=== PATIENT | male | born 1940 | race Caucasian/White ===

== ENCOUNTER 2016-12-10 01:01 | Emergency (ER) | payer OTHER ==
[~2016-12-10] VITALS: Ht 180.3 cm; Wt 99.8 kg
[~2016-12-10 01:01] MED LIST: BAYER CHEWABLE81 MG PO; GLUCOPHAGE1000 MG PO; GLUCOPHAGE500 MG PO; HYDROCHLOROTH12.5 MG; HYDROCODON-ACE1 EAC2 PO; JANUVIA100 MG PO; K-DUR10 MEQ PO; LASIX 20 MG TAB20 MG PO; LISINOPRIL10 MG PO; LISINOPRIL5 MG; MULTIVITAMINS PO; POTASSIUM20; SIMVASTATIN20 MG PO; SIMVASTATIN5 MG; VITAMIN D-32000 UNIT PO
[2016-12-10 01:54] LABS: HEMATOCRIT 36.4 % (42.0-52.0); HEMOGLOBIN 12.4 gm/dL (14.0-18.0); MCH 30.7 pg (26.0-34.0); MCHC 34.2 g/dL (28.0-37.0); MCV 89.9 fL (80.0-100.0); RBC 4.05 mil/uL (4.50-6.00); RDW 13.4 % (10.5-14.5); WBC 8.9 thou/uL (4.0-11.0)
[2016-12-10 02:04] LABS: CREATININE 1.2 mg/dL (0.7-1.3); POTASSIUM 3.8 mmol/L (3.5-5.1)
== END 2016-12-10 02:25 | disposition left against medical advice (07) ==
LOC: ER 01:01
PROVIDERS: Emergency Medicine
DX: R04.0 Epistaxis (principal); I10 Essential (primary) hypertension; M19.90 Unspecified osteoarthritis, unspecified site; Z90.49 Acquired absence of other specified parts of digestive tract; Z88.1 Allergy status to other antibiotic agents

== ENCOUNTER 2016-12-12 10:24 | Emergency (ER) | payer OTHER ==
[~2016-12-12] VITALS: Ht 177.8 cm; Wt 99.8 kg
== END 2016-12-12 13:03 | disposition home or self-care (01) ==
LOC: ER 10:24
DX: R04.0 Epistaxis (principal); I10 Essential (primary) hypertension; M19.90 Unspecified osteoarthritis, unspecified site; F10.99 Alcohol use, unspecified with unspecified alcohol-induced disorder; Z88.1 Allergy status to other antibiotic agents

== ENCOUNTER 2018-01-14 10:36 | Inpatient (IN) | payer OTHER ==
[~2018-01-14] VITALS: Ht 177.8 cm; Wt 109.7 kg
--- NOTE | ~2018-01-14 | EKG ---
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: EDMAR : 1940 Requested By: Jeremias Lee Order Number: [id number] MD: Saul Sosa Measurements Intervals [place] Rate: 139 P: [place]: QRS: -65 QRSD: 99 T: 59 QT: 283 QTc: 431 Interpretive Statements Atrial flutter with predominant 2:1 AV block Abnormal R-wave progression, late transition Inferior infarct, old Compared to ECG 07/04/2012 10:30:20 Atrial flutter has replaced sinus rhythm inferior Q waves are more prominent Electronically Signed On 01-15-2018 8:02:56 FORMULA BOTTLER by Saul Sosa [email or web address] <ELECTRONICALLY SIGNED> By: Saul Sosa MD, [facility] 01/15/18 0802 1043 1043 Saul Sosa MD, [facility] /EPI
--- NOTE | ~2018-01-14 | EKG ---
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: ANA : 1940 Requested By: Jeremias Lee Order Number: [id number] MD: Saul Sosa Measurements Intervals [place] Rate: 89 P: -31 FL: 222 QRS: -56 QRSD: 107 T: 10 QT: 363 QTc: 442 Interpretive Statements Sinus rhythm Atrial premature complexes Prolonged [place] interval Left anterior fascicular block Abnormal R-wave progression, early transition Compared to ECG 07/04/2012 10:30:20 Sinus rhythm has replaced atrial flutter Electronically Signed On 01-15-2018 8:04:25 FRAME TABLE OPERATOR HELPER by Saul Sosa [email or web address] <ELECTRONICALLY SIGNED> By: Saul Sosa MD, [facility] 01/15/18 0804 1234 1234 Saul Sosa MD, [facility] /EPI
--- NOTE | ~2018-01-14 | EKG ---
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 ELLEN : 1940 Requested By: Evelio Palma Order Number: [id number] MD: Saul Sosa Measurements Intervals [place] Rate: 79 P: 15 LA: 252 QRS: -50 QRSD: 104 T: 0 QT: 382 QTc: 438 Interpretive Statements Sinus rhythm Prolonged [place] interval Left anterior fascicular block Abnormal R-wave progression, early transition Borderline T wave abnormalities Compared to ECG 07/04/2012 10:30:20 Atrial premature complexes are no longer present Electronically Signed On 01-15-2018 8:07:42 PEAT SHREDDER TENDER by Saul Sosa [email or web address] <ELECTRONICALLY SIGNED> By: Saul Sosa MD, [facility] 01/15/18 0807 1440 1440 Saul Sosa MD, [facility] /EPI
--- NOTE | ~2018-01-14 | CATHLAB ---
[facility] [address] [place] [address] INVASIVE PROCEDURE REPORT Name: JARETTSARAI B Room #: 213-P [facility] IN ..#: [id number] Admission: 01/14/18 Attend Phys: Evelio Lau Discharge: Date of : 44 Date of Service: 01/16/18 1327 Report #: [id number] THIS REPORT FOR: //name// APPROVED REPORT Study performed: 01/16/2018 08:29:49 Patient Details Patient Status: In-Patient Room #: The patient is a 77 year-old male Event Personnel Daniel Dave Senior Net Software Developer, Cliff Timmons RN RN, Artemio Novak RN, Roby Hernandez Monitor, Scarlet Diego RTR, FINANCE ADMINISTRATOR Scrub Procedures Performed Left Heart Cath w/or w/o Coronaries [id number] [facility] Indication Non-STEMI , Dyspnea Risk Factors Obesity, HypercholesterolemiaPhysical Activity, Hypertension Procedure Narrative The Right Wrist^ was infiltrated with 1% Lidocaine subcutaneous anesthesia. A PINNACLE 4FR Sheath #[id number] sheath was inserted into the RFA^. Coronary angiography was performed using coronary diagnostic catheters. The right coronary system was accessed and visualized with a JR4 catheter. The left coronary system was accessed and visualized with a 4FR JL6 #[id number] catheter. The left ventricle was accessed and visualized with a PIGTAIL catheter. Left ventricular/Aortic Valve gradient assessed via catheter pullback. Left ventriculogram was performed in 30 degree projection. Hemostasis was obtained with manual pressure following sheath removal without any complications. The patient tolerated the procedure well and there were no complications associated with the procedure. There was no hematoma. Intraoperative Conscious Sedation Sedation start time: 9.16 Case end Time: 9.59 Fentanyl 50 mcg Versed 1 mg [facility] [address] [place] [address] INVASIVE PROCEDURE REPORT Name: SARAI DENSON Room #: 213-P [facility] IN ..#: [id number] Admission: 01/14/18 Attend Phys: Evelio Lau Discharge: Date of : 44 Date of Service: 01/16/18 1327 Report #: [id number] Fluoro Time: 4.28 minutes Dose: DAP 9341 cGycm2 1028 mGy Contrast Type and Amount: Omnipaque 105 ml Coronary Angiography The patient's coronary anatomy is right dominant. Diagnostic Cath Left Main large-caliber vessel with mild distal tapering. There is no evidence for flow limiting lesions. LAD The proximal segment has mild calcifications. There is mild disease, less than 20%. Diagonal 1 Tortuous vessel, with no flow-limiting lesions. Diagonal 2 Patent vessel, with no flow-limiting lesions. Circumflex Patent vessel, with mild disease proximally, less than 20%. OM1 Patent vessel, with no flow-limiting lesions. Right Coronary The RCA is ectatic throughout, with no flow-limiting lesions. R PDA Moderate size caliber vessel, with no flow-limiting lesions. RPLV Moderate size caliber vessel, mild disease proximally, 20%. Left Ventriculography The left ventricle is normal in size with normal contractility. The left ventricular ejection fraction is estimated to be 55-60%. Left ventricular wall motion abnormalities are not present. Hemodynamics The aortic pressure is 131/64 mmHg with a mean of 88 mmHg. The left ventricular pressure is 134/20 mmHg with a mean of mmHg. The left ventricular end diastolic pressure is 22 mmHg. There was no gradient across the aortic valve upon pullback. Pullback from the left ventricle to the aorta revealed no gradient across the aortic valve. Conclusion 1. Mild, nonobstructive coronary artery disease. [facility] [address] [place] [address] INVASIVE PROCEDURE REPORT Name: SARAI DENSON Room #: 213-P [facility] IN M.R.#: [id number] Admission: 01/14/18 Attend Phys: Evelio Lau Discharge: Date of : 44 Date of Service: 01/16/18 1327 Report #: [id number] 2. Normal LV systolic function. 3. Recommend aggressive risk factor management. <ELECTRONICALLY SIGNED> By: Daniel Dave MD 01/16/18 1327 132 1327 Daniel Dave MD /INF
--- NOTE | ~2018-01-14 | HC ---
[facility] [place] [address] CONSULTATION Name: JARETTSARAI B Room #: 213-P [facility] IN .R.#: [id number] Admission: 01/14/18 Attend Phys: Evelio Palma Discharge: Date of : 44 Report #: [id number] THIS REPORT FOR: //name// CC: Hussain Palma DATE OF SERVICE: 01/14/2018 TYPE OF REPORT: Cardiology consultation. INDICATION: Atrial flutter. HISTORY OF PRESENT ILLNESS: This 77-year-old gentleman who was brought in by EMS for falling at home. The patient is a poor historian, he denies any weakness, initially reported having some chest pain to the ER Department. However, on present questioning, he denies any chest pains or falling. 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 Apparently, he was going to the bathroom and he fell and was not able to get up. According to the patient's son, he had told the ER that his father had a similar incident several months ago and was evaluated at [facility]. According to the son, the father has periods of confusion. There is no previous cardiac history. The patient was admitted for atrial flutter, converted to sinus rhythm spontaneously. He was initially hypotensive, improved with IV hydration. On the monitor, his rhythm is sinus with frequent episodes of atrial tachycardia. PAST MEDICAL HISTORY: 1. Hypertension. 2. Rectal bleeding in 2012, found to have diverticulosis, but no acute bleed. 3. History of diabetes mellitus. 4. Hypercholesterolemia. 5. Some confusion. MEDICATIONS AT HOME: Include metformin and lisinopril 10 mg, simvastatin 20 mg and Januvia. ALLERGIES: Include KEFLEX. SOCIAL HISTORY: Negative for tobacco use. Lives with his who is debilitated. FAMILY HISTORY: Negative for premature CAD. REVIEW OF SYSTEMS: A full 10-point review of systems performed. Only the pertinent positives and negatives are described in the HPI. PHYSICAL EXAMINATION: [facility] [address] [place] [address] CONSULTATION Name: SARAI DENSON Rebeca Room #: 213-P [facility] IN [facility].#: [id number] Admission: 01/14/18 Attend Phys: Evelio Palma Discharge: Date of : 44 Report #: [id number] VITAL SIGNS: Blood pressure is 120/69 and heart rate is 87 beats per minute. GENERAL APPEARANCE: This is an overweight male, in no acute distress. HEENT: Normocephalic and atraumatic. Oral mucosa moist. NECK: Supple. LUNGS: Diminished breath sounds at the bases. CARDIAC: Regular rate and rhythm. S1 and S2 positive. ABDOMEN: Protuberant, soft and nontender. EXTREMITIES: No cyanosis. Positive edema. RADIOLOGICAL DATA: ECG reveals atrial flutter at a heart rate of 139 beats per minute. EKG #2 reveals sinus rhythm with APCs. LABORATORY DATA: Creatinine is 1.5. White count is 8.1 and hemoglobin is 13.3. Lactic acid is 3.9. Troponin is 0.15. ASSESSMENT AND PLAN: 1. Atrial flutter, converted spontaneously to sinus rhythm, not having episodes of atrial tachycardia. If the blood pressure allows, I would recommend a low-dose beta lyubov. We will need an echocardiogram and check a TSH level. 2. Minimal troponin elevation, apparently had chest pain, although he denies it at this time. We will need to consider an ischemic evaluation. 3. Elevated lactic acid level, rule out an infectious process. Check cultures, consider antibiotic course depending on clinical course. 4. Hypertension, continue with medications. 5. Confusion, the patient gives conflicting history. There is a questionable history of dementia in the past. We would hold on anticoagulation therapy at this time. <ELECTRONICALLY SIGNED> By: Daniel Dave MD 01/16/18 0758 1721 2334 Daniel Dave MD /nt
--- NOTE | ~2018-01-14 | 2DMMODE ---
[facility] [address] [place] [address] 2 D/M-MODE ECHOCARDIOGRAM Name: SARAI DENSON Room #: 213-P [facility] IN ..#: [id number] Admission: 01/14/18 Attend Phys: Evelio Lau Discharge: Date of : 44 Date of Service: 01/15/18 1246 Report #: [id number] THIS REPORT FOR: //name// APPROVED REPORT Study performed: 01/15/2018 10:35:38 EXAM: Comprehensive 2D, Doppler, and color-flow Echocardiogram Patient Location: In-Patient Room #: 213 Status: routine BSA: 2.26 HR: 68 bpm BP: 136/75 mmHg Other Information Study Quality: Adequate Indications Elevated Troponin Hypertension/HDD Hx aflutter 2D Dimensions RVDd: 36.64 mm IVSd: 17.31 (7-11mm) LVOT Diam: 24.16 (18-24mm) LVDd: 49.60 mm PWd: 17.48 (7-11mm) Ascending Ao: 38.36 (22-36mm) LVDs: 32.06 (25-40mm) Aortic Root: 40.64 mm IVC: 27.00 mm Volumes Left Atrial Volume (Systole) Single Plane 4CH: 46.80 mL Single Plane 2CH: 46.38 mL LA ESV Index: 23.00 mL/m2 Aortic Valve AoV Peak Piero.: 1.45 m/s AO Peak Gr.: 8.41 mmHg LVOT Max P.73 mmHg LVOT Max V: 0.97 m/s SHAY Vmax: 3.05 cm2 Mitral Valve E/A Ratio: 0.7 MV Decel. Time: 304.92 ms [facility] [address] [place] [address] 2 D/M-MODE ECHOCARDIOGRAM Name: SARAI DENSON Room #: 213-[facility]#: [id number] Admission: 01/14/18 Attend Phys: Evelio Lau Discharge: Date of : 44 Date of Service: 01/15/18 1246 Report #: [id number] MV E Max Piero.: 0.62 m/s MV A Piero.: 0.92 m/s MV PHT: 88.43 ms IVRT: 100.35 ms Pulmonary Valve PV Peak Piero.: 1.00 m/s PV Peak Gr.: 4.00 mmHg Pulmonary Vein P Vein S: 0.53 m/s P Vein A: 0.25 m/s P Vein D: 0.48 m/s P Vein A Dur.: 96.9 msec P Vein S/D Ratio: 1.10 Tricuspid Valve TR Peak Piero.: 2.72 m/s RAP Estimate: 10.00 mmHg TR Peak Gr.: 29.67 mmHg PA Pressure: 40.00 mmHg Left Ventricle The left ventricle is normal size. Moderate concentric left ventricular hypertrophy. The left ventricular systolic function is normal. The left ventricular ejection fraction is within the normal range. LVEF is 55-60%. Mild diastolic dysfunction is present (impaired relaxation pattern). Right Ventricle The right ventricle is normal size. The right ventricular systolic function is normal. Atria The left atrium size is normal. Right atrium is mildly dilated. Aortic Valve The aortic valve is normal in structure. Trace aortic regurgitation. There is no aortic valvular stenosis. Mitral Valve The mitral valve is normal in structure. Trace mitral regurgitation. No evidence of mitral valve stenosis. Tricuspid Valve The tricuspid valve is normal in structure. Mild tricuspid regurgitation. PAP is estimated at 40-45 [place] [address] 2 D/M-MODE ECHOCARDIOGRAM Name: SARAI DENSON Room #: 213-P [facility] IN [facility].#: [id number] Admission: 01/14/18 Attend Phys: Evelio Lau Discharge: Date of : 44 Date of Service: 01/15/18 1246 Report #: [id number] Pulmonic valve is not well visualized. There is no pulmonic valvular regurgitation. Great Vessels The aortic root is normal in size. IVC is dilated and collapses >50% with inspiration. Pericardium There is no pericardial effusion. <Conclusion> The left ventricle is normal size. Moderate concentric left ventricular hypertrophy. The left ventricular systolic function is normal. Mild diastolic dysfunction is present (impaired relaxation pattern). The right ventricle is normal size. The left atrium size is normal. The aortic valve is normal in structure. Trace aortic regurgitation. Trace mitral regurgitation. Mild tricuspid regurgitation. PAP is estimated at 40-45 mmHg. <ELECTRONICALLY SIGNED> By: Daniel Dave MD 01/15/18 1246 1246 1246 Daniel Dave MD /INF
[2018-01-14 10:37] VITALS: BP 102/57
[2018-01-14 10:59] LABS: HEMATOCRIT 38.7 % (42.0-52.0); HEMOGLOBIN 13.3 gm/dL (14.0-18.0); MCH 31.4 pg (26.0-34.0); MCHC 34.2 g/dL (28.0-37.0); MCV 91.6 fL (80.0-100.0); RBC 4.23 mil/uL (4.50-6.00); RDW 13.9 % (10.5-14.5); WBC 8.1 thou/uL (4.0-11.0)
[2018-01-14 11:05] LABS: CALCIUM 9.2 mg/dL (8.5-10.1); CREATININE 1.5 mg/dL (0.7-1.3); POTASSIUM 3.9 mmol/L (3.5-5.1)
[2018-01-14 11:13] LABS: ALBUMIN 3.5 g/dL (3.4-5.0); TOTAL BILIRUBIN 0.5 mg/dL (<0.1-1.0); TOTAL PROTEIN 7.3 g/dL (6.4-8.2); TROPONIN-I 0.15 ng/mL (<0.06)
[2018-01-14 12:16] LABS: URINE BILIRUBIN NEGATIVE (Negative); URINE BLOOD TRACE (Negative); URINE CLARITY CLEAR; URINE COLOR YELLOW; URINE GLUCOSE-RANDOM* NEGATIVE (Negative); URINE KETONES TRACE (Negative); URINE LEUKOCYTES-REFLEX NEGATIVE (Negative); URINE NITRITE-REFLEX NEGATIVE (Negative); URINE PROTEIN (DIPSTICK) 2+ (Negative); URINE SPECIFIC GRAVITY >= 1.030 (1.005-1.035); URINE UROBILINOGEN 0.2 E.U./dl (0.2-1.0)
[2018-01-14 12:29] LABS: BACTERIA-REFLEX 1-9 Few /HPF (None Seen); CASTS None Seen /LPF (None Seen); CRYSTALS None Seen /LPF (None Seen); SQUAMOUS 0-3 Few /LPF (0-3); URINE RBC 0-2 Rare /HPF (0-2); URINE WBC-REFLEX 0-5 Rare /HPF (0-5)
[2018-01-14 13:36] VITALS: BP 121/69
[2018-01-14 13:49] VITALS: BP 121/69
[2018-01-14 14:17] VITALS: BP 121/69
[2018-01-14 19:25] VITALS: BP 132/60
[2018-01-14 23:26] VITALS: BP 127/68
[2018-01-15 03:15] VITALS: BP 120/67
[2018-01-15 04:15] LABS: HEMATOCRIT 34.3 % (42.0-52.0); HEMOGLOBIN 11.7 gm/dL (14.0-18.0); MCH 31.6 pg (26.0-34.0); MCHC 34.2 g/dL (28.0-37.0); MCV 92.2 fL (80.0-100.0); RBC 3.71 mil/uL (4.50-6.00); RDW 14.3 % (10.5-14.5)
[2018-01-15 04:41] LABS: CALCIUM 8.6 mg/dL (8.5-10.1); CREATININE 1.3 mg/dL (0.7-1.3); POTASSIUM 4.3 mmol/L (3.5-5.1)
[2018-01-15 04:44] LABS: TROPONIN-I 1.27 ng/mL (<0.06)
[2018-01-15 08:30] VITALS: BP 136/75
[2018-01-15 08:41] LABS: CHOLESTEROL 108 mg/dL (<200); HDL CHOLESTEROL 38 mg/dL (>40); LDL CHOLESTEROL 51 mg/dL (<100); TC:HDL 2.8 Ratio (Not establshd); TRIGLYCERIDE 96 mg/dL (<150); VLDL 19 mg/dL (<40)
[2018-01-15 12:27] VITALS: BP 180/85
[2018-01-15 15:30] VITALS: BP 168/80
[2018-01-15 19:35] VITALS: BP 146/84
[2018-01-16] VITALS (11 sets, daily range): BP systolic 115–159; BP diastolic 53–84
[2018-01-16 04:57] LABS: CALCIUM 8.6 mg/dL (8.5-10.1); CREATININE 1.2 mg/dL (0.7-1.3); MAGNESIUM 1.5 mg/dL (1.8-2.4); POTASSIUM 4.3 mmol/L (3.5-5.1)
[2018-01-16 04:59] LABS: TROPONIN-I 0.65 ng/mL (<0.06)
[2018-01-16 05:20] LABS: FOLIC ACID 16.9 ng/mL (8.6-58.9)
[2018-01-17 04:53] VITALS: BP 154/63
[2018-01-17 08:02] VITALS: BP 148/82
[2018-01-17] MEDS ORDERED: ASPIRIN325 PO (08:39)
[2018-01-17] MEDS ORDERED: LEVAQUIN 500 M500 M2 PO (08:39)
[2018-01-17] MEDS ORDERED: LOPRESSOR25 PO (08:39)
[2018-01-17] MEDS ORDERED: FLOMAX0.4 MG PO (08:42)
[2018-01-17] MEDS ORDERED: GLUCOPHAGE1000 MG PO (08:44)
[2018-01-17 09:43] VITALS: BP 148/82
== END 2018-01-17 11:00 | disposition home or self-care (01) | DRG 871 ==
LOC: ER 10:36 → 2N 12:47 → EROBS 12:47 → 2N 13:37 → ENTRNSPT 01-17 10:42 → EDTRNSPTSTS 01-17 10:51 → 2N 01-17 11:00
PROVIDERS: Emergency Medicine; Hospitalist; Nurse Practitioner Family
PROC: B2151ZZ Fluoroscopy of Left Heart using Low Osmolar Contrast (ICD-10-PCS; principal; 2018-01-16)
PROC: B2111ZZ Fluoroscopy of Multiple Coronary Arteries using Low Osmolar Contrast (ICD-10-PCS; principal; 2018-01-16)
PROC: 4A023N7 Measurement of Cardiac Sampling and Pressure, Left Heart, Percutaneous Approach (ICD-10-PCS; principal; 2018-01-16)
DX: A41.50 Gram-negative sepsis, unspecified (principal); I21.4 Non-ST elevation (NSTEMI) myocardial infarction; N17.9 Acute kidney failure, unspecified; I48.92 Unspecified atrial flutter; E46 Unspecified protein-calorie malnutrition; I48.91 Unspecified atrial fibrillation; I95.9 Hypotension, unspecified; F03.90 Unspecified dementia, unspecified severity, without behavioral disturbance, psychotic disturbance, mood disturbance, and anxiety; E83.39 Other disorders of phosphorus metabolism; I25.10 Atherosclerotic heart disease of native coronary artery without angina pectoris; I11.0 Hypertensive heart disease with heart failure; I50.9 Heart failure, unspecified; E66.9 Obesity, unspecified; E78.00 Pure hypercholesterolemia, unspecified; E11.9 Type 2 diabetes mellitus without complications; M19.90 Unspecified osteoarthritis, unspecified site; K57.90 Diverticulosis of intestine, part unspecified, without perforation or abscess without bleeding; Z90.49 Acquired absence of other specified parts of digestive tract; Z79.899 Other long term (current) drug therapy; Z88.1 Allergy status to other antibiotic agents; Z79.84 Long term (current) use of oral hypoglycemic drugs; Z68.34 Body mass index [BMI] 34.0-34.9, adult; Z99.3 Dependence on wheelchair
CPT/HCPCS: 10081